=== PATIENT | female | born 1935 | race African-American/Black ===

== ENCOUNTER 2017-09-07 19:03 | Emergency (ER) | payer OTHER ==
[~2017-09-07] VITALS: Ht 157.5 cm; Wt 67.0 kg
[~2017-09-07 19:03] MED LIST: BLADDER PILL; BLOOD PRESSURE; CYCL-36 PO; IBUP-232 PO; VITA100018 PO
[2017-09-07 19:06] VITALS: BP 134/63; PULSE 63; RESP 16; TEMP 97.7; O2SAT 98
== END 2017-09-07 21:05 | disposition left against medical advice (07) ==
LOC: NED 19:03
DX: R42 Dizziness and giddiness (principal); Z53.21 Procedure and treatment not carried out due to patient leaving prior to being seen by health care provider
CPT/HCPCS: 99281